=== PATIENT | female | born 1955 | race Caucasian/White ===

== ENCOUNTER → 2017-02-15 | Outpatient (CLI) | payer BC ==
[~2017-02-15] MED LIST: CRESTOR5 MG PO; ELAVIL 10 MG TA10 MG PO; KLONOPIN TAB 00.5 MG PO; METOPROLOL SUCC25 MG PO; MONTELUKAST SOD10 MG PO; SYNTHROID88 MCG PO
== END ==
LOC: CT 12:42
DX: F17.210 Nicotine dependence, cigarettes, uncomplicated (principal); K76.89 Other specified diseases of liver; R91.8 Other nonspecific abnormal finding of lung field
CPT/HCPCS: G0297

== ENCOUNTER → 2017-03-05 | Outpatient (CLI) | payer BC | LOC: CT 08:11 | DX: K76.89 Other specified diseases of liver (principal); K76.9 Liver disease, unspecified | CPT/HCPCS: 74170; J7050; Q9962 ==

== ENCOUNTER → 2022-04-05 | Outpatient (CLI) | payer BC | LOC: KOH-I 12:49 | DX: R22.1 Localized swelling, mass and lump, neck (principal) | CPT/HCPCS: 76536 ==

== ENCOUNTER → 2022-07-05 | Outpatient (CLI) | payer BC | LOC: KOH-I 14:12 | DX: M79.671 Pain in right foot (principal) | CPT/HCPCS: 73620 ==